=== PATIENT | female | born 1985 | race Caucasian/White ===

== ENCOUNTER 2017-10-02 10:07 | Emergency (ER) | payer MEDICAID ==
[~2017-10-02] VITALS: Ht 167.6 cm; Wt 120.0 kg
[~2017-10-02 10:07] MED LIST: CELE40TA PO; CLON1 PO; METH40TA PO
[2017-10-02 10:09] VITALS: BP 131/86; PULSE 76; RESP 16; TEMP 98.2; O2SAT 97
[2017-10-02 11:59] LABS: BACTERIA, URINE MOD /hpf; BLOOD, URINE NEG (NEG); COMMENT (UR) CULTURE INDICATED; CULTURE IF INDICATED CULTURE INDICATED; GLUCOSE,URINE NEG (NEG); KETONE, URINE NEG (NEG); MUCUS URINE FEW /lpf (OCC); NITRITE,URINE NEG (NEG); SQUAMOUS EPITHELIAL CELL URINE 9 /hpf (0-5); URINE COLOR YELLOW (YELLW/STRAW)
[2017-10-02] MEDS ORDERED: PHEN0.4T PO (12:17)
[2017-10-02] MEDS ORDERED: FLUT1SPR5 EACH NARE (12:17)
[2017-10-02] MEDS ORDERED: BACT800T5 PO (12:17)
--- NOTE | 2017-10-02 12:20 | PD ---
HPI . Cold flu symptoms/dysuria Chief Complaint: Cold / Flu Symptoms Time Seen by Provider: 11:18 Travel History International Travel<30 days: No Contact w/Intl Traveler<30days: No Traveled to known affect area: No History of Present Illness HPI 32-year-old female presents emergency department for evaluation of cough, runny nose and dysuria. Patient reports that she has frequent UTIs and the burning sensation with urination and frequency are indicative that she has a urinary tract infection. Patient denies any fevers, chills, abdominal pain, nausea, vomiting, diarrhea. Patient describes the cough is intermittent and dry. Patient has no major medical history. 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 Patient denies any IV drug use. She denies any hematuria. PFSH Past Medical History Hx Anticoagulant Therapy: No Anxiety: Yes Depression: Yes Cardiovascular Problems: No Chemotherapy: No Cerebrovascular Accident: No Diabetes: No Diminished Hearing: No GERD: Yes Respiratory: No Immunizations Current: No Past Surgical History Section: Yes Hysterectomy: No Social History Alcohol Use: No Tobacco Use: Yes Substance Use: No Allergies-Medications (Allergen,Severity, Reaction): Coded Allergies: amoxicillin (Verified Allergy, Severe, 10/02/17) aripiprazole (Verified Allergy, Severe, 10/02/17) clavulanic acid (Verified Allergy, Severe, 10/02/17) Reported Meds & Prescriptions Reported Meds & Active Scripts Active Flonase Nasal [place] (Fluticasone Nasal [place]) 50 Mcg/Act [place] 50 Mcg EACH NARE BID Pyridium (Phenazopyridine HCl) 100 Mg Tab 100 Mg PO Q8H PRN Bactrim DS (Sulfamethoxazole-Trimethoprim) 800-160 Mg Tab 1 Tab PO BID 7 Days Reported Methadone (Methadone HCl) 40 Mg Tab 150 Mg PO DAILY Celexa (Citalopram Hydrobromide) 40 Mg Tab 40 Mg PO DAILY Klonopin (Clonazepam) 1 Mg Tab 1 Mg PO BID Review of Systems Except as stated in HPI: all other systems reviewed are Neg Physical Exam Narrative GENERAL: Well-nourished, well-developed 32-year-old female patient in no acute distress. Nontoxic appearing. SKIN: Focused skin assessment warm/dry. HEAD: Normocephalic. Atraumatic. EYES: No scleral icterus. No injection or drainage. ENT: Mucosa pink and moist. No erythema or exudates. No uvular edema. No uvular , palatal, or tonsillar deviation. Airway patent. Nasal turbinates appear mildly hypertrophic without nasal blood, purulent drainage or septal hematoma. THROAT: No pharyngeal injection, exudates, or tonsillar hypertrophy. Airway is patent. NECK: Supple, trachea midline. No JVD or lymphadenopathy. CARDIOVASCULAR: Regular rate and rhythm without murmurs, gallops, or rubs. RESPIRATORY: Breath sounds equal bilaterally. No accessory muscle use. GASTROINTESTINAL: Abdomen soft, non-tender, nondistended. BACK: Nontender without obvious deformity. No CVA tenderness. Data Data Last Documented VS Vital Signs Date Time Temp Pulse Resp B/P (MAP) Pulse Ox O2 Delivery O2 Flow Rate FiO2 10/02/17 12:22 10/02/17 10:09 98.2 76 16 97 Orders Orders Urinalysis - C+S If Indicated (10/02/17 10:15) Ear Irrigation (10/02/17 11:27) Urine Culture (10/02/17 10:25) Ed Discharge Order (10/02/17 12:20) Labs Laboratory Tests Test 10/02/17 10:25 Urine Color YELLOW Urine Turbidity HAZY Urine pH 8.0 Urine Specific [place] 1.020 Urine Protein 30 mg/dL Urine Glucose (UA) NEG mg/dL Urine Ketones NEG mg/dL Urine Occult Blood NEG Urine Nitrite NEG Urine Bilirubin NEG Urine Urobilinogen LESS THAN 2.0 MG/DL Urine Leukocyte Esterase LARGE Urine RBC 3 /hpf Urine WBC /hpf Urine WBC Clumps RARE Urine Squamous Epithelial Cells 9 /hpf Urine Bacteria MOD /hpf Urine Mucus FEW /lpf Microscopic Urinalysis Comment CULTURE INDICATED MDM Medical Decision Making Medical Screen Exam Complete: Yes Emergency Medical Condition: Yes Differential Diagnosis Differential diagnoses include but not limited to UTI, pyelonephritis, URI, viral syndrome, pneumonia, seasonal allergies, pharyngitis Narrative Course 32-year-old female presents emergency department for evaluation of cough, runny nose and urinary symptoms. Patient states she gets urinary tract infections frequently accompanied with dysuria and frequency. Patient denies any hematuria at this time. She denies any fevers, chills, chest pain, shortness breath, abdominal pain, nausea, vomiting, diarrhea. Patient's physical exam was unremarkable outside of inflamed nasal turbinates. Urinalysis sent and shows urinary tract infection. Patient will be discharged home with a prescription for Flonase for nasal congestion and Bactrim and perineum for urinary symptoms. Patient states she typically takes Bactrim for her urinary tract infections and that's what clears up. Due to patient having a urinary tract infection within the last 6 months I was initially considering ordering for quinolone however due to the patient's chronic use of methadone it was contraindicated. Patient instructed to return to the emergency department with any worsening condition but otherwise take medication as prescribed. Diagnosis Primary Impression: Urinary tract infection Qualified Codes: N39.0 - Urinary tract infection, site not specified Additional Impression: Viral syndrome Referrals: Primary Care Physician Patient Instructions: General Instructions, Urinary Tract Infection in Women ( ED), Viral Syndrome (ED) Additional Instructions: Please return to emergency department if your symptoms return or worsen. Follow up with your primary care provider. Take medications as prescribed. Stay hydrated, get enough rest, diet as tolerated. May alternate ibuprofen and Tylenol as needed for pain or fevers. Take full course of Bactrim for UTI Use Pyridium as needed for painful urination Use Flonase for nasal congestion Med/Other Pt SpecificInfo: Prescription(s) given Scripts Fluticasone Nasal [place] (Flonase Nasal [place]) 50 Mcg/Act [place] 50 MCG EACH NARE BID for Allergies, #1 BOTTLE 0 Refills Prov: Melody Rivers 10/02/17 Phenazopyridine (Pyridium) 100 Mg Tab 100 MG PO Q8H Y for DYSURIA, #15 TAB 0 Refills Prov: Melody Rivers 10/02/17 Sulfamethoxazole-Trimethoprim (Bactrim DS) 800-160 Mg Tab 1 TAB PO BID for Infection for 7 Days, #14 TAB 0 Refills Prov: Melody Rivers 10/02/17 Disposition: 01 DISCHARGE HOME Condition: Stable Melody Rivers Oct 02, 2017 12:20
== END 2017-10-02 12:28 | disposition home or self-care (01) ==
LOC: NEPK 10:07
DX: N39.0 Urinary tract infection, site not specified (principal); B34.9 Viral infection, unspecified; F41.9 Anxiety disorder, unspecified; F32.9 Major depressive disorder, single episode, unspecified; Z87.440 Personal history of urinary (tract) infections; Z72.0 Tobacco use
CPT/HCPCS: 81001; 87086; 99283

== ENCOUNTER 2018-03-16 11:50 | Emergency (ER) | payer MEDICAID ==
[~2018-03-16 11:50] MED LIST changes: +BACT800T5 PO; +FLUT1SPR5 EACH NARE; +PHEN0.4T PO
[2018-03-16 12:06] VITALS: BP 163/96; PULSE 76; RESP 16; TEMP 97.9; O2SAT 97
--- NOTE | 2018-03-16 13:25 | PD ---
HPI Chief Complaint: Complaint Time Seen by Provider: 13:14 Travel History International Travel<30 days: No Contact w/Intl Traveler<30days: No Traveled to known affect area: No History of Present Illness HPI 32-year-old female presents to the emergency department with complaint of symptoms of urinary tract infection 2 months. Says she has been to [facility] twice and was given Keflex and Bactrim and her symptoms go away for about 2 or 3 days and then they return. Reports urinary frequency, dysuria , hesitancy. Denies hematuria. Denies abnormal vaginal discharge or odor. Denies fever, vomiting, abdominal pain. Last took an antibiotic 3 weeks ago. Symptoms are worse with urination. Better without urinating. Symptoms are mild to moderate in severity. Antibiotics relief symptoms temporarily. Primary care provider is [facility]. History of anxiety. Denies other significant past medical history. No known allergies. Has no other medical complaints. No other modifying factors or associated signs and symptoms. PFSH Past Medical History Hx Anticoagulant Therapy: No Anxiety: Yes Depression: Yes Cardiovascular Problems: No Chemotherapy: No Cerebrovascular Accident: No Diabetes: No Diminished Hearing: No GERD: Yes Respiratory: No Immunizations Current: No ?: Not Past Surgical History Section: Yes Hysterectomy: No Social History Alcohol Use: No Tobacco Use: Yes Substance Use: No Allergies-Medications (Allergen,Severity, Reaction): Coded Allergies: amoxicillin (Verified Allergy, Severe, 10/02/17) aripiprazole (Verified Allergy, Severe, 10/02/17) clavulanic acid (Verified Allergy, Severe, 10/02/17) Reported Meds & Prescriptions Reported Meds & Active Scripts Active Pyridium (Phenazopyridine HCl) 100 Mg Tab 100 Mg PO Q8H PRN 3 Days Keflex (Cephalexin) 500 Mg Cap 500 Mg PO Q12H 10 Days Flonase Nasal [place] (Fluticasone Nasal [place]) 50 Mcg/Act [place] 50 Mcg EACH NARE BID Pyridium (Phenazopyridine HCl) 100 Mg Tab 100 Mg PO Q8H PRN Bactrim DS (Sulfamethoxazole-Trimethoprim) 800-160 Mg Tab 1 Tab PO BID 7 Days Reported Methadone (Methadone HCl) 40 Mg Tab 150 Mg PO DAILY Celexa (Citalopram Hydrobromide) 40 Mg Tab 40 Mg PO DAILY Klonopin (Clonazepam) 1 Mg Tab 1 Mg PO BID Review of Systems Except as stated in HPI: all other systems reviewed are Neg Physical Exam Narrative GENERAL: Well-nourished, well-developed female patient, in no acute distress; afebrile, nontoxic-appearing SKIN: Warm and dry. No rash. HEAD: Atraumatic. Normocephalic. EYES: Pupils equal and round. No scleral icterus. No injection or drainage. ENT: Mucosa pink and moist. NECK: Trachea midline. CARDIOVASCULAR: Regular rate and rhythm. No murmur appreciated RESPIRATORY: No accessory muscle use. Clear to auscultation. Breath sounds equal bilaterally. GASTROINTESTINAL: Abdomen soft, non-tender, nondistended. Hepatic and splenic margins not palpable. Bowel sounds are active 4 quadrants. Bladder nontender and nondistended. MUSCULOSKELETAL: No obvious deformities. No clubbing. No cyanosis. No edema. BACK: No CVA tenderness NEUROLOGICAL: Awake and alert. Oriented 3. No obvious cranial nerve deficits. Motor grossly within normal limits. Normal speech. Moves all extremities. 5/5 strength to all extremities. PSYCHIATRIC: Appropriate mood and affect; insight and judgment normal. Data Data Last Documented VS Vital Signs Date Time Temp Pulse Resp B/P (MAP) Pulse Ox O2 Delivery O2 Flow Rate FiO2 03/16/18 12:06 97.9 76 16 163/96 (118) 97 Orders Orders Urinalysis - C+S If Indicated (03/16/18 12:10) Ed Urine Pregnancytest Poc (03/16/18 12:10) Ibuprofen (Motrin) (03/16/18 13:30) Urine Culture (03/16/18 13:15) Lidocaine 1% Inj (50 Ml) (Xylocaine 1% I (03/16/18 14:00) Ceftriaxone Inj (Rocephin Inj) (03/16/18 14:00) Ed Discharge Order (03/16/18 13:59) Labs Laboratory Tests Test 03/16/18 13:15 Urine Color YELLOW Urine Turbidity HAZY Urine pH 8.5 Urine Specific [place] 1.019 Urine Protein 30 mg/dL Urine Glucose (UA) TRACE mg/dL Urine Ketones NEG mg/dL Urine Occult Blood NEG Urine Nitrite NEG Urine Bilirubin NEG Urine Urobilinogen 2.0 MG/DL Urine Leukocyte Esterase LARGE Urine RBC 9 /hpf Urine WBC 52 /hpf Urine Squamous Epithelial Cells 10 /hpf Urine Bacteria RARE /hpf Urine Mucus FEW /lpf Microscopic Urinalysis Comment CULTURE INDICATED MDM Medical Decision Making Medical Screen Exam Complete: Yes Emergency Medical Condition: Yes Medical Record Reviewed: Yes Differential Diagnosis Cystitis, UTI, dentalgia, dental abscess, dental caries Narrative Course 32-year-old female with complaint of urinary symptoms and dentalgia. Patient is afebrile nontoxic pain. Denies fever, vomiting. Has been treated twice in the last 2 months for symptoms of UTI and symptoms subsided for 2-3 days and come back. Has been given Keflex and Bactrim. Last took antibiotics 3 weeks ago. Urinalysis and UPT ordered. UPT negative. Ibuprofen ordered. 1356: Urinalysis with signs of infection. Reflex to culture. Rocephin 1 g IM ordered. Patient reports allergies to amoxicillin and reports history of taking Keflex in the past with no reactions. Keflex and Pyridium prescribed for home. Patient says she gets vaginal yeast infection with taking Keflex and is asking for Diflucan. Diflucan prescribed for home. Instructed patient to follow-up with dentist. Instructed patient to follow up with primary care provider. Patient verbalizes understanding and agreement with treatment plan. Patient is medically cleared and stable for discharge. Discussed reasons to return to the emergency department. Patient agrees with treatment plan. The patients vital signs are stable and the patient is stable for outpatient follow- up and treatment. Patient discharged home, stable and in no acute distress. Diagnosis Primary Impression: Dentalgia Additional Impression: Urinary tract infection Qualified Codes: N39.0 - Urinary tract infection, site not specified Referrals: [facility] Primary Care Physician Urologist Patient Instructions: Dental Caries (ED), General Instructions, Toothache (ED) , Urinary Tract Infection in Women (ED) Additional Instructions: Take antibiotics as prescribed and complete full course Take Pyridium for bladder spasms: Pyridium will turn your urine bright orange Drink plenty of fluids Make sure you wipe front to back Maintain good personal hygiene Follow-up with primary care provider Return to the emergency department immediately with worsening of symptoms Med/Other Pt SpecificInfo: Prescription(s) given Scripts Fluconazole (Diflucan) 150 Mg Tab 150 MG PO ONCE for Infection, #1 TAB 0 Refills Prov: Mary Alice OrozcoP 03/16/18 Phenazopyridine (Pyridium) 100 Mg Tab 100 MG PO Q8H Y for DYSURIA for 3 Days, #9 TAB 0 Refills Prov: Mary Alice Orozco 03/16/18 Cephalexin (Keflex) 500 Mg Cap 500 MG PO Q12H for Infection for 10 Days, #20 CAP 0 Refills Prov: Mary Alice Orozco 03/16/18 Disposition: 01 DISCHARGE HOME Condition: Stable Mary Alice Orozco Mar 16, 2018 13:25
[2018-03-16] MEDS ORDERED: IBUPROFEN 800 MG TAB PO ONE (13:30)
[2018-03-16 13:34] LABS: BACTERIA, URINE RARE /hpf; BILIRUBIN, URINE NEG (NEG); BLOOD, URINE NEG (NEG); GLUCOSE,URINE TRACE mg/dL (NEG); KETONE, URINE NEG (NEG); MUCUS URINE FEW /lpf (OCC); NITRITE,URINE NEG (NEG); PH, URINE 8.5 (5.0-8.5); SQUAMOUS EPITHELIAL CELL URINE 10 /hpf (0-5); URINE COLOR YELLOW (YELLW/STRAW); URINE LEUKOCYTE ESTERASE LARGE (NEG)
[2018-03-16] MEDS ORDERED: CEPH-460 PO (13:56)
[2018-03-16] MEDS ORDERED: PHEN0.4T PO (13:56)
[2018-03-16] MEDS ORDERED: LIDOCAINE HCL 1% 50 ML VIAL IM ONE (14:00)
[2018-03-16] MEDS ORDERED: DIFL150T PO (14:02)
== END 2018-03-16 14:18 | disposition home or self-care (01) ==
LOC: NEPD 11:50
DX: K08.89 Other specified disorders of teeth and supporting structures (principal); N39.0 Urinary tract infection, site not specified; B96.20 Unspecified Escherichia coli [E. coli] as the cause of diseases classified elsewhere; F41.9 Anxiety disorder, unspecified; Z88.0 Allergy status to penicillin; Z72.0 Tobacco use
CPT/HCPCS: 81001; 84703; 87077; 87086; 87186; 99283